=== PATIENT | male | born 1950 | race Caucasian/White ===

== ENCOUNTER 2018-10-01 19:48 | Inpatient (IN) | payer MEDICARE, OTHER, SELFPAY ==
[2018-10-01 19:49] VITALS: BP 90/55; PULSE 73; RESP 15; TEMP 36.6; O2SAT 98; BMI 21.9
--- NOTE | 2018-10-01 20:38 | CT_ITS ---
STUDY: CT ABDOMEN AND PELVIS WITH CONTRAST REASON FOR EXAM: Male, 68 years old. Abdominal pain. RADIATION DOSAGE (If Supplied By Facility): CTDIvol = ( 9.58 ) mGy, DLP = ( 677.20 ) mGycm TECHNIQUE: Transaxial images were obtained from the dome of the diaphragm to the symphysis pubis without oral contrast. 100ML IV/Oral Isovue 300 was administered. Sagittal and coronal images were reconstructed. Individualized dose optimization techniques were used for this CT. COMPARISON: None. FINDINGS: There is minimal dependent atelectasis within the lower lobes. There is a 1.3 cm well-circumscribed low-attenuation focus within the left hepatic lobe that likely reflects a cyst or hemangioma. Normal liver. Normal gallbladder and extrahepatic biliary system. Normal spleen. Normal pancreas. Normal bilateral adrenal glands. There is a too small to characterize low-attenuation focus within the right kidney that likely reflects underlying cyst. Normal left kidney. Normal visualized stomach. Normal small intestine. Normal colon. There is a tubular, thick-walled appendix (>7mm), consistent with acute appendicitis. There is free fluid within the pelvis. There is diffuse atherosclerotic calcification of the abdominal aorta, without a demonstrated aneurysm. Normal inferior vena cava. Normal retroperitoneum. Normal urinary bladder. Normal abdominal wall. There are diffuse degenerative changes of the visualized lumbar spine. CT/Abdomen/Pelvis WITH Contrast IMPRESSION: Acute appendicitis. Atherosclerosis. Degenerative changes. Electronically Signed: Rupinder Bautista MD at 22:47 EDT Tel , Service support ,
[2018-10-01] MEDS: 0.9% Normal Saline 1,000 ML 1000 ML IV (20:50)
[2018-10-01 20:51] LABS: Absolute Lymphocyte Count 0.58 X10^3/uL (0.83-4.51); Basophil# 0.01 X10^3/uL; Basophil% 0.1 % (0-1); Eosinophil# 0.03 X10^3/uL; Eosinophils% 0.3 % (0-5); Hemoglobin 15.3 g/dL (13.0-16.5); Lymphocyte # 0.58 X10^3/ul (4.0); Mean Corp Hgb Conc 33.3 g/dL (32-36); Mean Corpuscular Hgb 30.1 pg (27.0-32.0); Mean Corpuscular Volume 90.4 fL (80-94); Mean Platelet Vol. 9.9 fl (6.2-12.0); Monocyte# 0.41 X10^3/uL; Monocyte% 4.2 % (0-10); NRBC Flagged by Analyzer 0 % (0-5); Neutrophil # 8.66 X10^3/uL (2.7-7.7); Neutrophil % 89.1 % (47-70); POSITIVE DIFFERENTIAL YES; Platelet Count 263 K/mm3 (150-450); RBC Distribution Width CV 13.2 % (11.6-14.6); RBC Distribution Width SD 44.6 fl (35.1-43.9); Red Blood Count 5.09 M/mm3 (4.6-6.2); White Blood Count 9.7 K/mm3 (4.4-11.0)
[2018-10-01 20:53] LABS: Differential Indicated SCAN CRITERIA MET
[2018-10-01 21:10] LABS: ALB/GLOB Ratio 0.9 RATIO (0.9-2.4); AST(SGOT) 17 U/L (15-37); Alanine Aminotransfer ALT/SGPT 22 U/L (16-61); Albumin, Serum 3.6 g/dL (3.2-5.0); Alkaline Phosphatase 63 U/L (45-117); Anion Gap 8 (5-15); BUN 22 mg/dL (7-18); BUN/Creat Ratio 22.9 RATIO (10-20); Calcium,Total 9.2 mg/dL (8.5-10.1); Chloride 102 mmol/L (98-107); Creatinine, Serum 0.96 mg/dL (0.70-1.30); EST Glomerular Filtration Rate 83 mL/min (>60); Est Glom Filt Rate - Afr Amer 100 mL/min (>60); Estimated Creatinine Clearance 72.29 ml/min; Globulin 4.1 g/dL (2.2-4.2); Glucose 90 mg/dL (74-106); Lipase 170 U/L (73-393); Potassium 4.3 mmol/L (3.5-5.1); Protein, Total 7.7 g/dL (6.4-8.2); Sodium Level 139 mmol/L (136-145)
[2018-10-01 21:23] LABS: Differential Comment SCANNED
[2018-10-01 21:53] LABS: Bacteria 0 SEEN /hpf (None Seen); Red Blood Cells-Urine 0 SEEN /hpf (0-5); Squamous Epithelial Cells - UA 0 SEEN /hpf (0-5)
[2018-10-01 21:56] LABS: Color, Urine Yellow (Yellow); Glucose, Dipstick Normal (Normal); Leukocyte Esterase-Dipstick 25 /ul (Negative); Nitrite-Dipstick Negative (Negative); Occult Blood-Urine 10 /ul (Negative); Protein-Dipstick 15 mg/dl (Negative); Urine Bilirubin Dipstick Negative (Negative); Urine Clarity Sl. Cloudy (Clear); Urine Urobilinogen Normal (Normal)
[2018-10-01 22:00] LABS: Ketone-Dipstick 150 mg/dl (Negative)
[2018-10-01 22:02] LABS: Mucous, Urine 4+ /hpf (<or=2+); White Blood Cells 0-5 SEEN /hpf (0-5)
[2018-10-01 22:03] VITALS: BP 136/76; PULSE 83; RESP 16
[2018-10-01] MEDS: Ondansetron 4 MG/2 ML Vial IV (22:10)
[2018-10-01] MEDS: Morphine 4 MG/ML Syringe IV (22:11)
--- NOTE | 2018-10-01 23:16 | ED.VISSUMM ---
- ER Visit Summary Date of Service: 10/01/18 Chief Complaint: Abdominal pain History of Present Illness: The patient is a 68 M who presents with lower abdominal pain that he describes as cramping. He said he feels like he needs to have a bowel movement with a lot of pressure in his rectum. He is unable to have a bowel movement. Denies any fever or other GI symptoms. Denies urinary symptoms. Denies any history of abdominal surgery. Physical Examination: Afebrile and vital signs unremarkable except for initial blood pressure of 90/55. Patient is alert and oriented. No acute distress. Abdomen is diffusely tender over the lower hemiabdomen. No guarding or rebound. Rectal exam showed no stool or gross blood. Test Results: CBC, CMP, lipase, urinalysis unremarkable. CT abdomen showed changes consistent with appendicitis. Emergency Department Course and Treatment: Patient's repeat blood pressure after fluids was normal. He was treated with morphine and Zofran for continued pain. CT as above showed appendicitis. He was treated with Zosyn. He and his requested Dr. Wilson for consultation. I spoke with him on the phone and am awaiting his recommendations. Treatment Plan: As above Disposition: Admission Impression: 1. Acute appendicitis This note was generated with [employer] dictation software. It may contain incorrect words, spelling, and punctuation that were not noted in review of the chart prior to signing ED Disposition - Plan for ED Patient: Referrals: Mehul Acevedo MD [Primary Care Provider] -
--- NOTE | 2018-10-01 23:30 | PCM.HP.STD ---
History of Present Illness Date of Admission: 10/01/18 Chief Complaint: RLQ pain The patient is a 68 year old M with a 4 day history of vague abdominal pain now with more severe pain since 3PM today. He presented. had unremarkable laboratory studies. CT scan demonstrated appendicitis. Past Medical History Allergies No Known Allergies Allergy (Verified 10/01/18 19:51) Home Medications: Ambulatory Orders Medication Instructions Recorded Timolol Maleate 1 applicatio EACH EYE BID 10/01/18 Surgical History: - - foot surgery Smoking Status: Never smoker Review of Systems Constitutional: Reports: Anorexia, Chills. Denies: Fever, Weight Change HEENT: Denies: Head Aches, Sinus Congestion, Sinus Drainage Cardiovascular: Denies: Chest Pain, Palpitations Respiratory: Denies: Cough, Shortness of breath at rest, Sputum production Gastrointestinal: Reports: Abdominal Pain. Denies: Nausea, Vomiting Genitourinary: Denies: Dysuria Musculoskeletal: Denies: Joint Pain, Joint Tenderness Skin: Denies: Rash, Wounds Neurological: Denies: Numbness, Tingling, Focal weakness Psychiatric: Denies: Anxiety, Depression, Homicidal Ideations, Suicidal Ideations Hematologic/ Lymphatic: Denies: Easy Bruising, Easy Bleeding VTE Information - Inpt Only VTE Present on Admission: No VTE Mechan Device Prophylaxis: SCD's - Physical Exam General: Alert, Oriented x3, Cooperative HEENT: Atraumatic, PERRLA, EOMI, Normocephalic Neck: Supple, No JVD, Negative Carotid Bruits Lungs: Clear to auscultation, Normal air movement Cardiovascular: Regular rate, No murmurs Abdomen: Bowel Sounds Present, Soft, Tender - RLQ and lower abdomen Extremities: No edema, Capillary Refill Less than 3 Seconds Skin: No rashes, No breakdown Musculoskeletal: No Tenderness to Palpation of Joints or Extremities Neurological: Cranial nerves II-XII grossly intact Psych/Mental Status: Normal Affect, Appropriate Vital Signs Temp Pulse Resp BP Pulse Ox 98 F 83 16 136/76 H 98 10/01/18 19:49 10/01/18 22:03 10/01/18 22:03 10/01/18 22:03 10/01/18 19:49 Oxygen Delivery Method Room Air Weight: 69.4 kg Body Mass Index (BMI) 21.9 Laboratory Tests Past 24 Hrs 10/01/18 10/01/18 10/01/18 20:24 20:24 21:45 WBC 9.7 RBC 5.09 Hgb 15.3 Hct 46.0 MCV 90.4 MCH 30.1 MCHC 33.3 RDW Std Deviation 44.6 H RDW Coeff of [place] 13.2 Plt Count 263 MPV 9.9 Immature Gran % (Auto) 0.300 Neut % (Auto) 89.1 H Lymph % (Auto) 6.0 L [place] % (Auto) 4.2 Eos % (Auto) 0.3 Baso % (Auto) 0.1 Absolute Neuts (auto) Not Reportable Absolute Lymphs (auto) 0.58 L Absolute Nucleated RBC 0.00 Nucleated RBC % 0 Differential Comment SCANNED Sodium 139 Potassium 4.3 Chloride 102 Carbon Dioxide 29.0 Anion Gap 8 BUN 22 H Creatinine 0.96 Estim Creat Clear Calc 72.29 Est GFR (MDRD) Af Amer 100 Est GFR (MDRD) Non-Af 83 BUN/Creatinine Ratio 22.9 H Glucose 90 Calcium 9.2 Total Bilirubin 0.50 AST 17 ALT 22 Alkaline Phosphatase 63 Total Protein 7.7 Albumin 3.6 Globulin 4.1 Albumin/Globulin Ratio 0.9 Lipase 170 Urine Color Yellow Urine Clarity Sl. Cloudy Urine pH 6.0 Ur Specific [place] 1.020 Urine Protein 15 H Urine Glucose (UA) Normal Urine Ketones 150 H Urine Occult Blood 10 H Urine Nitrite Negative Urine Bilirubin Negative Urine Urobilinogen Normal Ur Leukocyte Esterase 25 H Urine RBC 0 SEEN Urine WBC 0-5 SEEN Ur Squamous Epith Cells 0 SEEN Urine Bacteria 0 SEEN Urine Mucus 4+ Assessment/Plan Acute appendicitis I plan to perform a laparoscopic appendectomy. the patient understands the risks, benefits, possible complications and alternatives and agrees to surgical intervention. Will place SCD's, start Zosyn
[2018-10-01 23:43] VITALS: BP 127/70; PULSE 89; RESP 16
[2018-10-02] VITALS (13 sets, daily range): BP systolic 93–128; BP diastolic 56–72; PULSE 71–89; RESP 16–18; TEMP 36.7–37.6; O2SAT 92–98; BMI 22.4; BMI 22.3
[2018-10-02] MEDS: Morphine 2 MG/ML Syringe IV ×3 (00:59→21:25)
[2018-10-02] MEDS: 0.9% NaCl Peripheral Flush Adult/Peds IV ×2 (01:08→14:40)
[2018-10-02] MEDS: Lactated Ringers 1,000 ML 100 ML IV (01:08)
--- NOTE | 2018-10-02 04:30 | EKG12_ITS ---
Test Reason : AM EKG Blood Pressure : / mmHG Vent. Rate : 090 BPM Atrial Rate : 090 BPM P-R Int : 158 ms QRS Dur : 100 ms QT Int : 356 ms P-R-T Axes : 069 043 068 degrees QTc Int : 435 ms Normal sinus rhythm Nonspecific T wave abnormality Abnormal ECG No previous ECGs available Confirmed by KIKA LOBO, JEANINE ([id number]), commercial production editor NA MORGAN ([id number]) on 10/05/2018 2:02:31 PM Referred By: Christopher Wilson Confirmed By:JEANINE ANAND MD
--- NOTE | 2018-10-02 06:00 | APP_PTH ---
PATIENT: ANDREA PRADO LOC: MS3 U#:[id number] AGE/SX: 68/M ROOM: [facility] RE10/02/[address]: Dr. Christopher Wilson MD : 1950 BED: 1 DIS: 10/07/2018 SPEC #: [id number] RECD: 10/04/18 07:57 STATUS: JANA REQ #: [id number] LUIS ANGEL: 10/02/18 06:[address]: Christopher Wilson DEPT: SURGICAL PATHOLOGY RECD BY: Johan Alvarado ENTERED: 10/04/18 08:21 SP TYPE: APPENDIX OTHR DR: Dr. Mehul Acevedo MD Tissues: Appendix, NOS Procedures: Surgery Specimen Level III HEADER OPERATION: Laparoscopic appendectomy PRE-OP DIAGNOSIS: Acute appendicitis TISSUE SUBMITTED: Appendix MICROSCOPIC DIAGNOSIS Appendix, appendectomy: Acute appendicitis. Acute serositis. AM:noemí 10/05/18 MICROSCOPIC DESCRIPTION Slides are reviewed. GROSS DESCRIPTION Received is one container labeled with the patient's name and designated appendix. The specimen consists of an appendix in two pieces measuring 8 cm in length and up to 1.6 cm in diameter. The site of disruption may represent site of perforation. The serosal surface is covered with hernandez, purulent exudate. The attached periappendiceal adipose tissue measures up to 2 cm in width. No fecalith is identified. Also present in the container is a detached piece of hemorrhagic adipose tissue measuring 3 x 1.5 x 1 cm. Accountant Machine Processing sections are submitted in one cassette. / AGATHA:noemí 10/04/18 TC:2 CPT: 93204
[2018-10-02] MEDS: Bupivacaine Mpf 0.5% 30 ML VIAL (07:00)
--- NOTE | 2018-10-02 07:21 | OP.PCM_ITS ---
Report of Operation Date of Procedure: 10/02/18 Pre-Operative Diagnosis: appendicitis Post-Operative Diagnosis: appendicitis - perforated/gangrenous Surgery/Procedure Performed:: laparoscopic appendectomy wood dowel machine operator: None Type of Anesthesia:: General Anesthesiologist: Laurie Salazar - ASA2E Specimen's removed: appendix Drains: none Estimated Blood Loss (mL): minimal Fluids Replaced: 1000 Description of Procedure: The patient was brought to the operating suite. Sign in was performed verifying patient, site, procedure, position, and DVT prophylaxis with SCDs. Patient received 4.5 g Zosyn for presumed appendicitis. Following induction of general anesthetic. The patient?s abdomen was prepped and draped in the usual fashion. Timeout was performed verifying patient, site, position. Local anesthetic was injected below the umbilicus. Incision made and dissection carried down to the umbilical root fascia. 2 stay sutures were placed. Incision made in the fascia, the peritoneum entered under direct visualization. A 10 mm Gordon trocar was inserted and secured with the stay sutures. Pneumoperitoneum to 15 mmHg was insufflated. 2 5mm ports were placed in the standard position. Visual inspection revealed significant lower abdomen inflammation. There were inflamed loops of small bowel adherent to the right lower quadrant significant edema. there was pus noted in the pelvis. As the loops of small bowel were bluntly dissected off the abdominal wall a significant amount of pus was entered in the right lower quadrant. The appendix was grossly inflamed and had loops of small bowel adherent to the appendix and base of the cecum area and there was significant inflammation of the cecal base area. a Harmonic scalpel was used to free up the adhesions of the appendix to the lateral sidewall. As dissection was continued the base of the appendix just near the cecum had perforated and was gangrenous with a fecalith present right at this location. After the Harmonic scalpel used to free up the mesentery of the appendix attempts to lift up the appendix basically had avulsed off the base of the cecum consistent with a significantly gangrenous appendix. Base of the cecum was then mobilized somewhat. An echelon thick load stapler was able to be placed and used to wedge off the base of the cecum requiring 2 staple firings The appendix, the fecalith and the cecal base was placed in an Endobag and removed through the umbilical port site. An 0 PDS [id number] suture was placed around the umbilical port site defect. Pneumoperitoneum was reestablished. The appendiceal area was checked for hemostasis. the abdominal cavity-pelvis right lower quadrant and right hepatic area were irrigated with approximately 2 L of saline. 5mm ports were removed under direct visualization with no signs of bleeding. Pneumoperitoneum was released. The Gordon trocar was removed. The umbilical fascial suture was secured area did skin was closed with interrupted 4-0 Monocryl subcuticular sutures. Steri-Strips and bandages were applied. The patient was brought to recovery room in stable condition. - Admit VTE Documentation VTE Present on Admission: No VTE Mechan Device Prophylaxis: SCD's
[2018-10-02] MEDS: 0.9% Normal Saline 1,000 ML 100 ML IV ×2 (09:24→18:07)
[2018-10-02] MEDS: Timolol 0.5% 5ML OPTH.BTL 1 DRP EACH EYE ×2 (12:33→21:13)
--- NOTE | 2018-10-02 14:03 | CASEMGMT ---
JACOBO BASSETT assessment: Face to Face with patient for initial transition planning/care coordination assessment. JACOBO BASSETT introduced self and role at [facility], pt voices understanding and consents to assessment at this time. Pt is sitting up in bed in no distress at this time. Pt is A/Ox4 at this time and answers all questions appropriately at this time. Care providers, pharmacy, and demographics verified at this time. PCP: Pt states has [facility] PCP but cannot remember name. Pt states was with Dr. Acevedo but he retired and he switched to new physician at same practice. Specialists: Pt states currently has no specialists. Preferred Pharmacy: [facility] Insurance: MCR A/B, [employer] Prescription Benefit: Pt states has Rx coverage but is not sure who it's through. Living Will/HPOA: Pt states is unsure if he has LW/HPOA and is aware that there are none on file at [facility] at this time. Pt declines any info at this time. LNOK: Sherrie Meeks, Living Arrangements: Pt states lives with in 2 story home and states no concerns at home at this time. Pt states is independent with ADL's. Transportation: Pt states drives self and states no transportation concerns at this time. DME/HHC: Pt states no current DME or need for any at this time. Pt states no hx of HHC or SNF in the past. Pt states no concerns with going home at time of discharge. 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 Pt states does not smoke and does not drink ETOH. Pt states no further concerns/needs at this time. CM to follow for any further discharge planning/needs. Advised pt to ask for CM if any further questions/concerns/needs arise, voices understanding. Pt Goal: Home Plan[place] JACOBO BASSETT
[2018-10-02] MEDS: 0.9% NaCl IVPB Med Flush (250 mL) 15 ML IV (14:28)
[2018-10-03 03:23] VITALS: BP 112/69; PULSE 78; RESP 16; TEMP 37; O2SAT 94
[2018-10-03] MEDS: 0.9% Normal Saline 1,000 ML 100 ML IV ×3 (03:28→21:36)
[2018-10-03 07:24] LABS: Absolute Lymphocyte Count 0.76 X10^3/uL (0.83-4.51); Absolute Neutrophil Count 11.9 X10^3/uL (2.0-7.7); Basophil# 0.03 X10^3/uL; Basophil% 0.2 % (0-1); Eosinophil# 0.04 X10^3/uL; Eosinophils% 0.3 % (0-5); Hemoglobin 12.1 g/dL (13.0-16.5); Lymphocyte # 0.76 X10^3/ul (4.0); Lymphocyte % 5.6 % (19-41); Mean Corp Hgb Conc 32.7 g/dL (32-36); Mean Corpuscular Hgb 29.5 pg (27.0-32.0); Mean Corpuscular Volume 90.2 fL (80-94); Mean Platelet Vol. 9.5 fl (6.2-12.0); Monocyte% 5.9 % (0-10); NRBC Flagged by Analyzer 0 % (0-5); Neutrophil # 11.92 X10^3/uL (2.7-7.7); Neutrophil % 87.4 % (47-70); Platelet Count 213 K/mm3 (150-450); RBC Distribution Width SD 46.5 fl (35.1-43.9); White Blood Count 13.6 K/mm3 (4.4-11.0)
[2018-10-03 07:57] LABS: ALB/GLOB Ratio 0.6 RATIO (0.9-2.4); AST(SGOT) 14 U/L (15-37); Alanine Aminotransfer ALT/SGPT 14 U/L (16-61); Albumin, Serum 2.3 g/dL (3.2-5.0); Alkaline Phosphatase 49 U/L (45-117); Anion Gap -1 (5-15); BUN 12 mg/dL (7-18); BUN/Creat Ratio 14.3 RATIO (10-20); Chloride 109 mmol/L (98-107); Creatinine, Serum 0.84 mg/dL (0.70-1.30); EST Glomerular Filtration Rate 97 mL/min (>60); Est Glom Filt Rate - Afr Amer 117 mL/min (>60); Estimated Creatinine Clearance 84.24 ml/min; Globulin 3.6 g/dL (2.2-4.2); Glucose 98 mg/dL (74-106); Potassium 3.7 mmol/L (3.5-5.1); Protein, Total 5.9 g/dL (6.4-8.2); Sodium Level 137 mmol/L (136-145)
[2018-10-03] MEDS: Acetaminophen 500 MG Tablet PO (08:05)
--- NOTE | 2018-10-03 08:54 | PN.SURG_ITS ---
Subjective: incisional pain, no flatus - Physical Exam General: Alert, Oriented x3, Cooperative Neck: Supple, No JVD, Negative Carotid Bruits Lungs: Clear to auscultation, Normal air movement Cardiovascular: Regular rate, No murmurs Abdomen: Soft, Hypoactive Bowel Sounds, Tender - at incisions Vital Signs Temp Pulse Resp BP Pulse Ox 98.6 F 78 16 112/69 94 10/03/18 03:23 10/03/18 03:23 10/03/18 03:23 10/03/18 03:23 10/03/18 03:23 Oxygen Delivery Method Room Air Weight: 70.76 kg Body Mass Index (BMI) 22.3 Intake and Output for Last 24 Hours 10/01/18 10/02/18 10/03/18 23:59 23:59 23:59 Intake Total 1454 / 3034 2258 / 2258 Output Total 1075 / 1550 950 / 950 Balance 379 / 1484 1308 / 1308 Laboratory Tests Past 24 Hrs 10/03/18 10/03/18 07:15 07:15 WBC 13.6 H RBC 4.10 L Hgb 12.1 L Hct 37.0 L MCV 90.2 MCH 29.5 MCHC 32.7 RDW Std Deviation 46.5 H RDW Coeff of [place] 14.0 Plt Count 213 MPV 9.5 Immature Gran % (Auto) 0.600 Neut % (Auto) 87.4 H Lymph % (Auto) 5.6 L [place] % (Auto) 5.9 Eos % (Auto) 0.3 Baso % (Auto) 0.2 Absolute Neuts (auto) 11.9 H Absolute Lymphs (auto) 0.76 L Absolute Nucleated RBC 0.00 Nucleated RBC % 0 Sodium 137 Potassium 3.7 Chloride 109 H Carbon Dioxide 29.0 Anion Gap -1 L BUN 12 Creatinine 0.84 Estim Creat Clear Calc 84.24 Est GFR (MDRD) Af Amer 117 Est GFR (MDRD) Non-Af 97 BUN/Creatinine Ratio 14.3 Glucose 98 Calcium 8.0 L Total Bilirubin 0.60 AST 14 L ALT 14 L Alkaline Phosphatase 49 Total Protein 5.9 L Albumin 2.3 L Globulin 3.6 Albumin/Globulin Ratio 0.6 L Medical Necessity - Tobacco Use Smoking Status: Never smoker Assessment/Plan Acute gangrenous perforated appendicitis with significant intra-abdominal purulent contamination - s/p laparoscopic appendectomy POD # 1 I discussed with the patient the findings of generalized intra-abdominal peritonitis with significant inflammation, purulence, adherent loops of small bowel that were inflamed secondary to the infection and purulence. Patient's white blood cell count is mildly elevated today, patient had low-grade fever overnight. We'll maintain patient on Zosyn given the degree of intra- abdominal inflammation. We'll start clear liquids but I discussed with the patient the fact that significant edema and inflammation of the right lower quadrant intestine would likely cause a localized postoperative ileus. We will not advance his diet until he has flatus. Encourage use of incentive spirometry due to amount of purulent material over the diaphragm giving him an increased risk for right lower lobe pneumonia. Patient understands. We'll have patient ambulate, continue SCDs to minimize risk for VTE.
[2018-10-03 09:00] VITALS: BP 124/78; PULSE 85; RESP 18; TEMP 37; O2SAT 95
[2018-10-03] MEDS: Timolol 0.5% 5ML OPTH.BTL 1 DRP EACH EYE ×2 (09:04→21:11)
[2018-10-03] MEDS: Morphine 2 MG/ML Syringe IV ×3 (12:07→21:12)
[2018-10-03] MEDS: 0.9% NaCl Peripheral Flush Adult/Peds IV ×2 (12:08→14:28)
[2018-10-03 14:29] VITALS: BP 140/87; PULSE 75; RESP 18; TEMP 37.2; O2SAT 95
[2018-10-03 21:07] VITALS: BP 144/82; PULSE 81; RESP 16; TEMP 37.3; O2SAT 96
[2018-10-03 21:20] VITALS: PULSE 81; RESP 16; O2SAT 96
[2018-10-03 21:37] VITALS: TEMP 36.8
[2018-10-04] MEDS: Acetaminophen 500 MG Tablet PO (00:20)
[2018-10-04] MEDS: Morphine 2 MG/ML Syringe IV ×4 (01:05→21:52)
[2018-10-04 03:00] VITALS: BP 151/88; PULSE 67; RESP 16; TEMP 36.7; O2SAT 96
[2018-10-04 06:52] LABS: Absolute Lymphocyte Count 0.74 X10^3/uL (0.83-4.51); Absolute Neutrophil Count 12.5 X10^3/uL (2.0-7.7); Basophil# 0.04 X10^3/uL; Basophil% 0.3 % (0-1); Eosinophil# 0.11 X10^3/uL; Eosinophils% 0.8 % (0-5); Hemoglobin 13.4 g/dL (13.0-16.5); Lymphocyte # 0.74 X10^3/ul (4.0); Lymphocyte % 5.1 % (19-41); Mean Corp Hgb Conc 33.5 g/dL (32-36); Mean Corpuscular Hgb 30.2 pg (27.0-32.0); Mean Corpuscular Volume 90.3 fL (80-94); Mean Platelet Vol. 9.7 fl (6.2-12.0); Monocyte# 0.95 X10^3/uL; Monocyte% 6.6 % (0-10); NRBC Flagged by Analyzer 0 % (0-5); Neutrophil # 12.48 X10^3/uL (2.7-7.7); Neutrophil % 86.6 % (47-70); Platelet Count 244 K/mm3 (150-450); RBC Distribution Width CV 13.9 % (11.6-14.6); RBC Distribution Width SD 46.6 fl (35.1-43.9); Red Blood Count 4.43 M/mm3 (4.6-6.2); White Blood Count 14.4 K/mm3 (4.4-11.0)
[2018-10-04] MEDS: 0.9% Normal Saline 1,000 ML 100 ML IV ×2 (07:16→15:53)
[2018-10-04 10:00] VITALS: BP 124/86; PULSE 79; RESP 16; TEMP 36.5; O2SAT 94
--- NOTE | 2018-10-04 10:18 | PN.SURG_ITS ---
Subjective: no flatus, feeling bloated - Physical Exam General: Alert, Oriented x3, Cooperative Lungs: Clear to auscultation, Normal air movement Cardiovascular: Regular rate, Regular Rhythm Abdomen: Bowel Sounds Present, Soft, Distended, Tender - at incisions Vital Signs Temp Pulse Resp BP Pulse Ox 98.1 F 67 16 151/88 H 96 10/04/18 03:00 10/04/18 03:00 10/04/18 03:00 10/04/18 03:00 10/04/18 03:00 Oxygen Delivery Method Room Air Weight: 70.76 kg Body Mass Index (BMI) 22.3 Intake and Output for Last 24 Hours 10/02/18 10/03/18 10/04/18 23:59 23:59 23:59 Intake Total 1454 / 3034 3330 / 4667 [birth year] Output Total 1075 / 1550 1175 / 1725 800 / 800 Balance 379 / 1484 2155 / 2942 1150 / 1150 Laboratory Tests Past 24 Hrs 10/04/18 06:40 WBC 14.4 H RBC 4.43 L Hgb 13.4 Hct 40.0 MCV 90.3 MCH 30.2 MCHC 33.5 RDW Std Deviation 46.6 H RDW Coeff of [place] 13.9 Plt Count 244 MPV 9.7 Immature Gran % (Auto) 0.600 Neut % (Auto) 86.6 H Lymph % (Auto) 5.1 L [place] % (Auto) 6.6 Eos % (Auto) 0.8 Baso % (Auto) 0.3 Absolute Neuts (auto) 12.5 H Absolute Lymphs (auto) 0.74 L Absolute Nucleated RBC 0.00 Nucleated RBC % 0 Medical Necessity - Tobacco Use Smoking Status: Never smoker Assessment/Plan Acute gangrenous perforated appendicitis with significant intra-abdominal purulent contamination - s/p laparoscopic appendectomy POD # 2 I discussed with the patient the findings of generalized intra-abdominal peritonitis with significant inflammation, purulence, adherent loops of small bowel that were inflamed secondary to the infection and purulence. Patient's white blood cell count is mildly elevated today, patient had low-grade fever overnight. We'll maintain patient on Zosyn given the degree of intra- abdominal inflammation. We'll retuern to sips and chips as patient feels bloated. I discussed with the patient the fact that significant edema and inflammation of the right lower quadrant intestine would likely cause a localized postoperative ileus. We will not advance his diet until he has flatus. Encourage use of incentive spirometry due to amount of purulent material over the diaphragm giving him an increased risk for right lower lobe pneumonia. Patient understands. We'll have patient ambulate, continue SCDs to minimize risk for VTE.
[2018-10-04] MEDS: Timolol 0.5% 5ML OPTH.BTL 1 DRP EACH EYE (10:32)
[2018-10-04 14:30] VITALS: BP 150/93; PULSE 74; RESP 16; TEMP 36.8; O2SAT 95
[2018-10-04] MEDS: 0.9% NaCl IVPB Med Flush (250 mL) 15 ML IV (14:40)
[2018-10-04] MEDS: 0.9% NaCl Peripheral Flush Adult/Peds IV ×2 (14:41→21:52)
[2018-10-04 21:34] VITALS: BP 145/93; PULSE 78; RESP 16; TEMP 37.1; O2SAT 98
[2018-10-05] MEDS: 0.9% Normal Saline 1,000 ML 100 ML IV ×3 (01:50→22:27)
[2018-10-05] MEDS: Morphine 2 MG/ML Syringe IV ×3 (01:53→19:04)
[2018-10-05] MEDS: 0.9% NaCl Peripheral Flush Adult/Peds IV ×3 (01:53→19:04)
[2018-10-05 02:31] VITALS: BP 137/87; PULSE 84; RESP 16; TEMP 36.9; O2SAT 96
[2018-10-05 05:32] LABS: Absolute Lymphocyte Count 0.94 X10^3/uL (0.83-4.51); Basophil# 0.03 X10^3/uL; Basophil% 0.3 % (0-1); Eosinophil# 0.35 X10^3/uL; Eosinophils% 3.7 % (0-5); Hematocrit 35.3 % (40-54); Hemoglobin 11.8 g/dL (13.0-16.5); Lymphocyte # 0.94 X10^3/ul (4.0); Mean Corp Hgb Conc 33.4 g/dL (32-36); Mean Corpuscular Hgb 29.6 pg (27.0-32.0); Mean Corpuscular Volume 88.5 fL (80-94); Mean Platelet Vol. 9.4 fl (6.2-12.0); Monocyte# 1.02 X10^3/uL; Monocyte% 10.9 % (0-10); NRBC Flagged by Analyzer 0 % (0-5); Neutrophil # 6.96 X10^3/uL (2.7-7.7); Platelet Count 256 K/mm3 (150-450); RBC Distribution Width CV 14.1 % (11.6-14.6); RBC Distribution Width SD 45.9 fl (35.1-43.9); Red Blood Count 3.99 M/mm3 (4.6-6.2); White Blood Count 9.4 K/mm3 (4.4-11.0)
[2018-10-05 06:00] LABS: ALB/GLOB Ratio 0.5 RATIO (0.9-2.4); AST(SGOT) 11 U/L (15-37); Alanine Aminotransfer ALT/SGPT 13 U/L (16-61); Albumin, Serum 1.9 g/dL (3.2-5.0); Alkaline Phosphatase 50 U/L (45-117); Anion Gap 8 (5-15); BUN 12 mg/dL (7-18); BUN/Creat Ratio 21.2 RATIO (10-20); Calcium,Total 7.6 mg/dL (8.5-10.1); Chloride 109 mmol/L (98-107); Creatinine, Serum 0.57 mg/dL (0.70-1.30); EST Glomerular Filtration Rate 152 mL/min (>60); Est Glom Filt Rate - Afr Amer 184 mL/min (>60); Estimated Creatinine Clearance 70.76 ml/min; Globulin 3.5 g/dL (2.2-4.2); Glucose 77 mg/dL (74-106); Potassium 3.5 mmol/L (3.5-5.1); Protein, Total 5.4 g/dL (6.4-8.2); Sodium Level 142 mmol/L (136-145)
[2018-10-05 08:26] VITALS: BP 152/90; PULSE 75; RESP 14; TEMP 36.6; O2SAT 95
[2018-10-05] MEDS: Timolol 0.5% 5ML OPTH.BTL 1 DRP EACH EYE (10:24)
[2018-10-05 14:00] VITALS: BP 148/89; PULSE 80; RESP 14; TEMP 37.3; O2SAT 93
--- NOTE | 2018-10-05 17:57 | PCM.PN.SRG ---
Subjective: flatus and small bowel movement this afternoon. - Physical Exam General: Alert, Oriented x3, Cooperative Lungs: Clear to auscultation, Normal air movement Cardiovascular: Regular rate, No murmurs Abdomen: Bowel Sounds Present, Soft, Hypoactive Bowel Sounds, Tender - at incisions, nontender right lower quadrant Vital Signs Temp Pulse Resp BP Pulse Ox 99.2 F H 80 14 148/89 H 93 10/05/18 14:00 10/05/18 14:00 10/05/18 14:00 10/05/18 14:00 10/05/18 14:00 Oxygen Delivery Method Room Air Weight: 70.76 kg Body Mass Index (BMI) 22.3 Intake and Output for Last 24 Hours 10/03/18 10/04/18 10/05/18 23:59 23:59 23:59 Intake Total 3330 / 4667 3629 / 3629 2339 / 2339 Output Total 1175 / 1725 800 / 800 1425 / 1425 Balance 2155 / 2942 2829 / 2829 914 / 914 Laboratory Tests Past 24 Hrs 10/05/18 10/05/18 05:12 05:12 WBC 9.4 RBC 3.99 L Hgb 11.8 L Hct 35.3 L MCV 88.5 MCH 29.6 MCHC 33.4 RDW Std Deviation 45.9 H RDW Coeff of [place] 14.1 Plt Count 256 MPV 9.4 Immature Gran % (Auto) 1.100 H Neut % (Auto) 74.0 H Lymph % (Auto) 10.0 L [place] % (Auto) 10.9 H Eos % (Auto) 3.7 Baso % (Auto) 0.3 Absolute Neuts (auto) 7.0 Absolute Lymphs (auto) 0.94 Absolute Nucleated RBC 0.00 Nucleated RBC % 0 Sodium 142 Potassium 3.5 Chloride 109 H Carbon Dioxide 25.0 Anion Gap 8 BUN 12 Creatinine 0.57 L Estim Creat Clear Calc 70.76 Est GFR (MDRD) Af Amer 184 Est GFR (MDRD) Non-Af 152 BUN/Creatinine Ratio 21.2 H Glucose 77 Calcium 7.6 L Total Bilirubin 0.60 AST 11 L ALT 13 L Alkaline Phosphatase 50 Total Protein 5.4 L Albumin 1.9 L Globulin 3.5 Albumin/Globulin Ratio 0.5 L Medical Necessity - Tobacco Use Smoking Status: Never smoker Assessment/Plan Acute gangrenous perforated appendicitis with significant intra-abdominal purulent contamination - s/p laparoscopic appendectomy POD # 3 I discussed with the patient the findings of generalized intra-abdominal peritonitis with significant inflammation, purulence, adherent loops of small bowel that were inflamed secondary to the infection and purulence. Patient's white blood cell count is mildly elevated today, patient had low-grade fever overnight. We'll maintain patient on Zosyn given the degree of intra-abdominal inflammation. patient passing flatus, we'll start clear liquids.. I discussed with the patient the fact that significant edema and inflammation of the right lower quadrant intestine would likely cause a localized postoperative ileus. We will not advance his diet until he improved bowel function Encourage use of incentive spirometry due to amount of purulent material over the diaphragm giving him an increased risk for right lower lobe pneumonia. Patient understands. We'll have patient ambulate, continue SCDs to minimize risk for VTE.
[2018-10-05 20:05] VITALS: BP 135/88; PULSE 71; RESP 16; TEMP 37.3; O2SAT 97
[2018-10-06] MEDS: Morphine 2 MG/ML Syringe IV ×2 (00:17→06:03)
[2018-10-06] MEDS: 0.9% NaCl Peripheral Flush Adult/Peds IV ×2 (00:17→06:03)
[2018-10-06 00:23] VITALS: BP 149/88; PULSE 76; RESP 18; TEMP 37.2; O2SAT 96
[2018-10-06 06:16] VITALS: BP 147/91; PULSE 72; RESP 20; TEMP 37.1; O2SAT 95
--- NOTE | 2018-10-06 07:37 | PN.SURG_ITS ---
Subjective: passing flatus, small liquid bowel movements, still bloating with oral liquids - Physical Exam General: Alert, Oriented x3, Cooperative Lungs: Clear to auscultation, Normal air movement Cardiovascular: Regular rate, No murmurs Abdomen: Bowel Sounds Present, Soft, Tender - at incisions Vital Signs Temp Pulse Resp BP Pulse Ox 98.7 F 72 20 H 147/91 H 95 10/06/18 06:16 10/06/18 06:16 10/06/18 06:16 10/06/18 06:16 10/06/18 06:16 Oxygen Delivery Method Room Air Weight: 70.76 kg Body Mass Index (BMI) 22.3 Intake and Output for Last 24 Hours 10/04/18 10/05/18 10/06/18 23:59 23:59 23:59 Intake Total 3629 / 3629 2339 / 2339 2653 / 2653 Output Total 800 / 800 1425 / 1425 1000 / 1000 Balance 2829 / 2829 914 / 914 1653 / 1653 Medical Necessity - Tobacco Use Smoking Status: Never smoker Assessment/Plan Acute gangrenous perforated appendicitis with significant intra-abdominal purulent contamination - s/p laparoscopic appendectomy POD # 4 I discussed with the patient the findings of generalized intra-abdominal peritonitis with significant inflammation, purulence, adherent loops of small bowel that were inflamed secondary to the infection and purulence. Patient's white blood cell count is mildly elevated today, patient had low-grade fever overnight. We'll maintain patient on Zosyn given the degree of intra- abdominal inflammation. patient passing flatus, we'll start clear liquids.. I discussed with the patient the fact that significant edema and inflammation of the right lower quadrant intestine would likely cause a localized postoperative ileus. We will not advance his diet until he improved bowel function. Is and Os more balanced. Encourage use of incentive spirometry due to amount of purulent material over the diaphragm giving him an increased risk for right lower lobe pneumonia. Patient understands. We'll have patient ambulate, continue SCDs to minimize risk for VTE.
[2018-10-06] MEDS: 0.9% Normal Saline 1,000 ML 100 ML IV ×2 (08:35→18:11)
[2018-10-06] MEDS: Timolol 0.5% 5ML OPTH.BTL 1 DRP EACH EYE (08:36)
[2018-10-06 10:00] VITALS: BP 166/66; PULSE 89; RESP 18; TEMP 37.1; O2SAT 95
[2018-10-06] MEDS: Acetaminophen 500 MG Tablet PO (13:48)
[2018-10-06 14:20] VITALS: BP 162/95; PULSE 66; RESP 18; TEMP 36.9; O2SAT 96
[2018-10-06 16:23] VITALS: PULSE 70
[2018-10-06 20:59] VITALS: BP 153/81; PULSE 68; RESP 18; TEMP 36.6; O2SAT 96
[2018-10-07] MEDS: Acetaminophen 500 MG Tablet PO (01:23)
[2018-10-07] MEDS: 0.9% Normal Saline 1,000 ML 100 ML IV (03:59)
[2018-10-07 05:42] VITALS: BP 148/74; PULSE 71; RESP 19; TEMP 36.6; O2SAT 96
--- NOTE | 2018-10-07 06:45 | DCINST_ITS ---
Discharge Diet: Light diet - advance as tolerated Discharge Activity: May Drive May shower in (days): 1 Suture Line Care: Avoid Pulling/Pushing, Avoid Pinching/Bending Additional Dressing/Incision Instructions:: Keep dressing clean and dry. Change or remove dressing in 2 days. Leave steri strips for 1 week. May protect with a gauze bandaid. Medications to take at Discharge Timolol Maleate 1 applicatio EACH EYE BID 10/01/18 Amoxicillin/Potassium Clav [Augmentin 875-125 Tablet] 1 ea PO BID #10 tab 10/07/18 Allergies/Adverse Reactions: Allergies No Known Allergies Allergy (Verified 10/01/18 19:51) The following prescriptions were given: Amoxicillin/Potassium Clav [Augmentin 875-125 Tablet] 1 ea PO BID #10 tab Prescription Printed Primary Care Physician: Mehul Acevedo MD [Primary Care Provider] - Test Results: Test results from this visit will be discussed in further detail at your follow- up appointment, if applicable. Please Follow Up With: Christopher Wilson MD - [phone] When: Call to make a follow up appointment Thursday
--- NOTE | 2018-10-07 07:12 | PCM.DC.SUM ---
Discharge Date and Diagnosis Date of Admission: 10/01/18 Date of Discharge: 10/07/18 - Primary Discharge Diagnosis perforated appendicitis with significant peritonitis Hospital Course and Treatment Operations: appendectomy Summary of Care Provided: The patient is a 68 year old M with a four-day history of abdominal pain who was taken to the operating suite and underwent a laparoscopic appendectomy noting gangrenous perforated appendicitis with significant pelvic right lower quadrant and perihepatic infection and purulent fluid. The patient was copiously irrigated. There was also loops of small bowel adherent to the right lower quadrant which were significantly inflamed. The patient had the anticipated postoperative ileus given the degree of inflammation. He is able to be started on a liquid diet and with normalization of his white blood cell count and improvement of his abdominal symptoms in bowel function, he was able to be discharged home on postoperative day 5. He will be discharged on Augmentin for 10 days and have him plan to follow-up in my office in one week. - Physical Exam General: Alert, Oriented x3, Cooperative Lungs: Clear to auscultation, Normal air movement Cardiovascular: Regular rate, No murmurs Abdomen: Bowel Sounds Present, Soft, Non Tender Vital Signs Temp Pulse Resp BP Pulse Ox 97.9 F 71 19 H 148/74 H 96 10/07/18 05:42 10/07/18 05:42 10/07/18 05:42 10/07/18 05:42 10/07/18 05:42 Oxygen Delivery Method Room Air Weight: 70.76 kg Body Mass Index (BMI) 22.3 Intake and Output for Last 24 Hours 10/05/18 10/06/18 10/07/18 23:59 23:59 23:59 Intake Total 2339 / 2339 4768 / 4768 2063 / 2063 Output Total 1425 / 1425 1725 / 1725 1275 / 1275 Balance 914 / 914 3043 / 3043 788 / 788 Discharge Diet: Light diet - advance as tolerated Discharge Activity: May Drive May shower in (days): 1 Suture Line Care: Avoid Pulling/Pushing, Avoid Pinching/Bending Additional Dressing/Incision Instructions:: Keep dressing clean and dry. Change or remove dressing in 2 days. Leave steri strips for 1 week. May protect with a gauze bandaid. Home Medications: Medications to take at Discharge Timolol Maleate 1 applicatio EACH EYE BID 10/01/18 Amoxicillin/Potassium Clav [Augmentin 875-125 Tablet] 1 ea PO BID #10 tab 10/07/18 Following Prescrptions Were Given to Patient: Amoxicillin/Potassium Clav [Augmentin 875-125 Tablet] 1 ea PO BID #10 tab Prescription Printed Primary Care Physician: Mehul Acevedo MD [Primary Care Provider] - Please Follow Up With: Christopher Wilson MD - [phone] When: Call to make a follow up appointment Thursday Medical Necessity - Tobacco Use Smoking Status: Never smoker Meaningful Use Info Meaningful Use Diagnoses (Choose all that apply): None applicable
[2018-10-07 08:25] VITALS: BP 141/88; PULSE 61; RESP 18; TEMP 36.6; O2SAT 98
== END 2018-10-07 09:27 | disposition home or self-care (01) | DRG 342 ==
LOC: ED 22:38 → MS3 10-02 01:24
PROVIDERS: Admitting Provider Surgery; Emergency Provider Emergency Medicine; Family Provider Family Medicine; PCP Family Medicine; Referring Provider Surgery; Visit Provider Surgery
PROC: 0DTJ4ZZ Resection of Appendix, Percutaneous Endoscopic Approach (ICD-10-PCS; CPT 44970; principal; 2018-10-02 06:00)
DX: K35.20 Acute appendicitis with generalized peritonitis, without abscess (principal); K56.7 Ileus, unspecified
CPT/HCPCS: 36415; 74177; 80053; 81001; 83690; 85025; 88304; 93005; 99284; J7030; J7040; J7050; J7120; Q9967; A4216; J2405